=== PATIENT | male | born 1955 | race Caucasian/White ===

== ENCOUNTER → 2022-07-25 | Outpatient (CLI) | payer BC ==
--- NOTE | 2022-07-25 09:49 | US ---
EXAMINATION TYPE: US scrotum with doppler. Grayscale and color Doppler Duplex imaging performed of t nalini scrotum. DATE OF EXAM: 07/25/2022 COMPARISON: NONE CLINICAL HISTORY: N50.89 LT TESTICLE SWELLING. Left testicle swelling. No redness or injury. EXAM MEASUREMENTS: TESTICLES: Right Testicle: 4.7 x 2.8 x 2.6 cm Left Testicle: 4.6 x 3.3 x 1.8 cm EPIDIDYMIS HEAD: Right Epididymis: 0.6 x 0.6 x 0.9 cm Left Epididymis: 1.1 x 1.3 x 1.1 cm Doppler performed to assess for testicular vascularity; good bilateral color flow and waveforms are s een. There is no evidence of testicular torsion. Presence of hydroceles: Small right. Left fluid area seen with moving internal echoes visualized= 7 .3 x 5.9 x 4.8 cm. Presence of varicoceles: no IMPRESSION: 1. Normal large complex hydrocele or fluid collection left side
== END | disposition home or self-care (01) ==
LOC: RADUSWWP 08:48
PROVIDERS: ATTEND Surgery
DX: N43.3 Hydrocele, unspecified (principal); N50.89 Other specified disorders of the male genital organs
CPT/HCPCS: 76870; 93975

== ENCOUNTER → 2022-10-10 | Outpatient (CLI) | payer BC ==
[2022-10-10 17:35] LABS: Basophils # (A) 0.11 X 10*3/uL (0.00-0.10); Basophils % (A) 1.2 %; Eosinophils # (A) 0.14 X 10*3/uL (0.04-0.35); Eosinophils % (A) 1.5 %; HCT 49.1 % (39.6-50.0); HGB 15.9 d/dL (12.0-15.0); Lymphocytes # (A) 2.17 X 10*3/uL (0.90-5.00); Lymphocytes % (A) 22.8 %; MCH 31.5 pg (27.0-32.0); MCHC 32.4 d/dL (32.0-37.0); MCV 97.4 FL (80.0-97.0); Mean Platelet Volume 9.7 FL (9.5-12.2); Monocytes # (A) 1.28 X 10*3/uL (0.20-1.00); Monocytes % (A) 13.5 %; NRBC Per 100 WBC 0 X 10*3/uL (0.00-0.01); Neutrophils # (A) 5.77 X 10*3/uL (1.80-7.70); Neutrophils % (A) 60.7 %; Platelet Count 450 X 10*3/uL (140-440); RBC 5.04 X 10*6/uL (4.40-5.60); RDW 14.6 % (11.5-14.5)
[2022-10-11 18:13] LABS: Blood Urea Nitrogen 20.6 mg/dL (9.0-27.0); Chloride 104 mmol/L (96-109); Glucose 139 mg/dL (70-110); Potassium 5.4 mmol/L (3.5-5.5); Sodium 143 mmol/L (135-145)
== END | disposition home or self-care (01) ==
LOC: LABPAT 10:18
PROVIDERS: ATTEND Urology
DX: Z01.812 Encounter for preprocedural laboratory examination (principal); N43.3 Hydrocele, unspecified
CPT/HCPCS: 36415; 80048; 85025

== ENCOUNTER 2022-10-17 08:10 | Day surgery (SDC) | payer BC, MEDICARE ==
[~2022-10-17 08:10] MED LIST: ACETAMINOPHEN TAB 500 MG TAB PO PRN; DEXAMETHASONE SOD PHOSPHATE 4 MG/ML 1 ML VIAL IV ONE; HEPARIN SODIUM,PORCINE/PF 5,000 UNIT/0.5 ML SYRINGE SQ PRN; HYDROmorphone 0.5 MG/0.5 ML SYRINGE IVP PRN; LACTATED RINGERS 1,000 ML IV SCH; MIDAZOLAM 2 MG/2 ML VIAL IV PRN; ONDANSETRON 4 MG/2 ML VIAL IVP ONE
--- NOTE | 2022-10-17 08:36 | P.GSHP ---
History of Present Illness H&P Date: 10/17/22 Chief Complaint: Right inguinal hernia 67-year-old male here for repair right inguinal hernia and hydrocele on left. Patient has seen urology on a few occasions recently. Has complaints of swelling in the right groin and left testicle. Mild soreness bilaterally. Patient with history of previous abdominal surgeries and adhesions. Prior CAT scan showed bilateral inguinal hernia and umbilical hernia. Past Medical History Past Medical History: GERD/Reflux, Prostate Disorder Additional Past Medical History / Comment(s): lt hydrocel. enlarged prostate, generalized rash flares when pt is hot. seen for it not contagious, diverticulitis History of Any Multi-Drug Resistant Organisms: None Reported Additional Past Surgical History / Comment(s): nasal septal surgery. stretching of esophagus, egd. Additional Past Anesthesia/Blood Transfusion Reaction / Comment(s): woke up during egd. Smoking Status: Never smoker - Past Family History Father Additional Family Medical History / Comment(s): pacemaker. Medications and Allergies Home Medications Medication Instructions Recorded Confirmed Type Finasteride [Proscar] 5 mg PO HS 10/12/22 10/12/22 History Ibuprofen [Advil] 200 mg PO DIRECTED PRN 10/12/22 10/12/22 History Magnesium 250 mg PO DAILY 10/12/22 10/12/22 History Niacin 500 mg PO DAILY 10/12/22 10/12/22 History [place]-3/Dha/Epa/Fish Oil [Fish Oil 1,000 mg PO DAILY 10/12/22 10/12/22 History 1,000 mg Softgel] Omeprazole [PriLOSEC] 20 mg PO AC-BRKFST 10/12/22 10/12/22 History Tamsulosin HCl [Flomax] 0.4 mg PO HS 10/12/22 10/12/22 History Unk Black Elderberry 1 tab PO DAILY 10/12/22 10/12/22 History Unk Garlic 1 tab PO DAILY 10/12/22 10/12/22 History Zinc Gluconate [Zinc] 50 mg PO DAILY 10/12/22 10/12/22 History Allergies Allergy/AdvReac Type Severity Reaction Status Date / Time No Known Allergies Allergy Verified 10/12/22 14:33 Surgical - Exam Physical exam: General: Well-developed, well-nourished HEENT: Normocephalic, sclerae nonicteric Abdomen: Nontender, nondistended, reducible moderate sized right inguinal hernia, left hydrocele Extremities: No edema Neuro: Alert and oriented Assessment and Plan (1) Right inguinal hernia Narrative/Plan: 67-year-old male with symptomatic right inguinal hernia. We'll proceed with open repair right inguinal hernia with mesh. Following that patient will have the left hydrocele operated on by urology. Risks of bleeding, infection, recurrence, bladder and bowel injury, numbness, nerve injury were discussed with the patient. The patient understands and wishes to proceed. Current Visit: Yes Status: Acute Code(s): K40.90 - UNIL INGUINAL HERNIA, W/O OBST OR GANGR, NOT SPCF RECUR SNOMED Code(s): 115355608
--- NOTE | 2022-10-17 10:11 | P.HPIHPCON ---
History of Present Illness H&P Date: 10/17/22 Chief Complaint: left hydrocele This is a 67 yo male with hx of left hydrocele. option of left hydrocelectomy was discussed with him. aware of risk of bleeding, infection, injury to the testicle and recurrence. RIsk of anesthesia was also discussed Consent for Procedure: I have explained the operation/procedure to the patient, including the risks, benefits, side effects, alternative therapies (including not receiving the proposed treatment or service), the likelihood of the patient achieving his/her goals, and potential recuperation problems for the procedure/sedation/analgesia, as well as any blood products, if indicated. I also explained to the patient the risks, benefits and side effects of the alternatives, as well as the risks related to not receiving the proposed procedure, care, treatment, or services. Past Medical History Past Medical History: GERD/Reflux, Prostate Disorder Additional Past Medical History / Comment(s): lt hydrocel. enlarged prostate, generalized rash flares when pt is hot. seen for it not contagious, diverticulitis History of Any Multi-Drug Resistant Organisms: None Reported Additional Past Surgical History / Comment(s): nasal septal surgery. stretching of esophagus, egd. Additional Past Anesthesia/Blood Transfusion Reaction / Comment(s): woke up du ring egd. Smoking Status: Never smoker - Past Family History Father Additional Family Medical History / Comment(s): pacemaker. Medications and Allergies Home Medications Medication Instructions Recorded Confirmed Type Finasteride [Proscar] 5 mg PO HS 10/12/22 10/17/22 History Ibuprofen [Advil] 200 mg PO DIRECTED PRN 10/12/22 10/12/22 History Magnesium 250 mg PO DAILY 10/12/22 10/12/22 History Niacin 500 mg PO DAILY 10/12/22 10/12/22 History [place]-3/Dha/Epa/Fish Oil [Fish Oil 1,000 mg PO DAILY 10/12/22 10/12/22 History 1,000 mg Softgel] Omeprazole [PriLOSEC] 20 mg PO AC-BRKFST 10/12/22 10/17/22 History Tamsulosin HCl [Flomax] 0.4 mg PO HS 10/12/22 10/17/22 History Unk Black Elderberry 1 tab PO DAILY 10/12/22 10/12/22 History Unk Garlic 1 tab PO DAILY 10/12/22 10/12/22 History Zinc Gluconate [Zinc] 50 mg PO DAILY 10/12/22 10/12/22 History Allergies Allergy/AdvReac Type Severity Reaction Status Date / Time No Known Allergies Allergy Verified 10/17/22 08:41 Surgical - Exam Vital Signs Temp Pulse Resp BP Pulse Ox 98.6 F 60 18 149/81 93 L 10/17/22 08:44 10/17/22 08:44 10/17/22 08:44 10/17/22 08:44 10/17/22 08:44 - General no distress, no pain - Respiratory normal expansion, normal respiratory effort Assessment and Plan Assessment: -OR for left hydrocelectomy, this will be a dual case with Dr Carmichael
[2022-10-17] MEDS ORDERED: ROCURONIUM 10 MG/ML (5 ML VIAL) IV ONE (10:15)
[2022-10-17] MEDS ORDERED: LIDOCAINE 2% INJ 20 MG/ML (2 ML VIAL) ONE (10:15)
[2022-10-17] MEDS ORDERED: KETOROLAC 15 MG/ML 1 ML VIAL ONE (10:15)
[2022-10-17] MEDS ORDERED: HYDROmorphone (PF) 1 MG/ML ONE (10:15)
[2022-10-17] MEDS ORDERED: fentaNYL (PF) 50 MCG/ML 2 ML AMP ONE (10:15)
[2022-10-17] MEDS ORDERED: PROPOFOL 10 MG/ML 20 ML VIAL IV ONE (10:15)
[2022-10-17] MEDS ORDERED: GLYCOPYRROLATE 0.2 MG/ML 2 ML VIAL ONE (10:15)
[2022-10-17] MEDS ORDERED: MIDAZOLAM 2 MG/2 ML VIAL ONE (10:15)
[2022-10-17] MEDS ORDERED: NEOSTIGMINE 1 MG/ML 10 ML VIAL ONE (10:15)
[2022-10-17] MEDS ORDERED: SUCCINYLCHOLINE CHLORIDE 200 MG/10 ML VIAL IV ONE (10:15)
[2022-10-17] MEDS ORDERED: BUPIVACAINE (PF) 0.25% 30 ML VIAL SQ ONE ×3 (10:47→11:40)
--- NOTE | 2022-10-17 12:06 | P.OP ---
Date of Procedure: 10/17/22 Procedure(s) Performed: PREOPERATIVE DIAGNOSIS: Right inguinal hernia POSTOPERATIVE DIAGNOSIS: Same PROCEDURE: Open repair right inguinal hernia with mesh, excision cord lipoma SURGEON: Dr. Carmichael ANESTHESIA: General OPERATIVE PROCEDURE DETAILS: Patient was placed in the operating table in the supine position and placed under general anesthesia. An oblique incision was made in the right groin. Dissection down through the subcutaneous tissues took place using electrocautery. The external oblique fascia was incised using a scalpel. This opening was lengthened using the Metzenbaum scissors. The spermatic cord was encircled with a [place] drain. The spermatic cord structures were identified and preserved. Careful dissection revealed an indirect hernia sac. This was fairly large. The sac was opened. No intra- abdominal contents were identified. The patient had 2 lipomas also present one medial and one lateral both were ligated at the internal inguinal ring using 0 silk stick tie sutures. The indirect hernia sac was carefully dissected back to the internal inguinal ring where it was ligated using 2 separate 0 silk stick tie sutures. A 2 inch by four-inch Prolene mesh was cut to fit on the exposed fascia. This was sutured to the pubic tubercle the folding edge of the inguinal ligament and the conjoined tendon using interrupted 0 Vicryl sutures. A slit was created in the mesh and the mesh was wrapped around the spermatic cord and sutured back to itself. The external oblique was then reapproximated using a running 2-0 Vicryl suture. The subcutaneous tissues were reapproximated using a 3-0 Vicryl sutures. The skin was closed using 4-0 Monocryl sutures. Skin glue and sterile dressings were then applied. TYPE OF MESH USED: 2 inch by four-inch flat Prolene mesh LOCATION OF MESH: [place] FIXATION: O Vicryl PREOPERATIVE DISCUSSION ON SMOKING CESSASTION: Yes PREOPERATIVE DISCUSSION ON MORBID OBESITY: Yes PREOPERATIVE DISCUSSION ON APPROPRIATE USE OF NARCOTIC USE: Yes PREOPERATIVE EDUCATION: Multi Modal, Smoking Cessation and Weight Loss with BMI over 35. DISPOSITION: Stable to recovery room
--- NOTE | 2022-10-17 12:13 | P.OP ---
Date of Procedure: 10/17/22 Preoperative Diagnosis: Left hydrocele Postoperative Diagnosis: Same Procedure(s) Performed: Left hydrocelectomy Implants: none Anesthesia: PADMINI Surgeon: Rk Roberts Estimated Blood Loss (ml): 10 Pathology: other (Left hydrocele sac) Condition: stable Disposition: PACU Indications for Procedure: This is a 67-year-old male with history of left-sided hydrocele, he is symptomatically from his hydrocele Option of hydrocelectomy was discussed with her the risk of bleeding, infection, injury to the testicle. Risk of recurrence also discussed. He understood all the risk and agreed to proceed with a left hydrocelectomy, this will be a combined case with a right inguinal hernia repair which will be performed by Dr Carmichael and a left hydrocelectomy Operative Findings: large left hydrocele Description of Procedure: After Dr Carmichael completed his portion. At this time local anesthetic was infiltrated along the left hemiscrotum, next an incision was made along the left scrotum using a scalpel. Dartos fascia wsa incised using cautery. Hydrocele sac was dissected off of. Next a small incision was made in the hydrocele sac and the hydrocele sac was drained. Next the hydrocele sac was excised, the edges of the hydrocele sacs was, cauterized. Of note the hydrocele sac was significantly thickened. Next to prevent recurrence the hydrocele sac was everted backward and both edges were sutured together using 3-0 Vicryl. Next the testicles returned back to the scrotum in normal anatomical lay, hemostasis was achieved, and there was no evidence of bleeding.. Next dartos was was closed using 3-0 Vicryl, skin was closed using 4-0 chromic. Skin glue was applied to the incision. Patient tolerated procedure well taken to recovery in stable condition
[2022-10-17 12:25] VITALS: TEMP 97.6
[2022-10-17] MEDS ORDERED: LACTATED RINGERS 1,000 ML IV ONE (12:43)
[2022-10-17 13:33] VITALS: RESP 16
[2022-10-17 13:58] VITALS: BP 132/78; PULSE 70
== END 2022-10-17 14:31 | disposition home or self-care (01) ==
LOC: OR 08:10
PROVIDERS: ATTEND Surgery
DX: D17.6 Benign lipomatous neoplasm of spermatic cord (principal); K40.90 Unilateral inguinal hernia, without obstruction or gangrene, not specified as recurrent; N43.3 Hydrocele, unspecified; K21.9 Gastro-esophageal reflux disease without esophagitis; Z98.890 Other specified postprocedural states; Z79.899 Other long term (current) drug therapy
CPT/HCPCS: 49505; 55040; C1781; J2250; J0330; J1100; J2710; J0690; J2405; J3010; J1170; J1885; J2704; J1644; J2001; 88304

== ENCOUNTER 2022-10-24 08:00 | Emergency (ER) | payer BC, MEDICARE ==
[2022-10-24 08:16] VITALS: BP 122/86; PULSE 96; RESP 20; TEMP 98.7
--- NOTE | 2022-10-24 09:00 | ED ---
Recheck HPI - General Chief Complaint: Recheck/Abnormal Lab/Rx Stated Complaint: post op comp Time Seen by Provider: 10/24/22 08:32 Source: patient, RN notes reviewed Mode of arrival: ambulatory Limitations: no limitations - History of Present Illness Initial Comments: This is a 67-year-old male who presents to the emergency department for concerns of a postoperative complication. On 10/17, patient had removal of left hydrocele with Dr. Roberts, this was combined with right inguinal hernia repair with Dr. Carmichael. States that he has not had a bowel movement since surgery. He is taking MiraLAX. While he is not having bowel movements, he has not experienced any abdominal pain or nausea. 2 days ago, he started to notice that the incision on the bottom of his scrotum had started to open up. Yesterday and into today they opened up substantially per the family, and he has had ongoing bleeding. This is only painful if he gets up and tries to move around. He changes the pads a couple of times each day, whenever he uses the restroom. States that the scrotal swelling has actually started to improve. He had previously taken Motrin and Tylenol, but thought that he could not take this for more than 5 days, and has thus stopped taking it. However, it was very helpful when he was taking it. Denies any fevers, chills, sore throat, cough, dyspnea, chest pain, palpitations, abdominal pain, nausea, vomiting, diarrhea, back pain, or h eadaches. Complaint: wound re-check - Related Data Home Medications Medication Instructions Recorded Confirmed Finasteride [Proscar] 5 mg PO HS 10/12/22 10/24/22 Ibuprofen [Advil] 200 mg PO DIRECTED PRN 10/12/22 10/24/22 Magnesium 250 mg PO DAILY 10/12/22 10/24/22 Niacin 500 mg PO DAILY 10/12/22 10/24/22 [place]-3/Dha/Epa/Fish Oil [Fish Oil 1,000 mg PO DAILY 10/12/22 10/24/22 1,000 mg Softgel] Omeprazole [PriLOSEC] 20 mg PO AC-BRKFST 10/12/22 10/24/22 Tamsulosin HCl [Flomax] 0.4 mg PO HS 10/12/22 10/24/22 Zinc Gluconate [Zinc] 50 mg PO DAILY 10/12/22 10/24/22 Acetaminophen Tab [Tylenol Tab] 1,000 mg PO Q6H PRN 10/24/22 10/24/22 Black Elderberry(Unknown Dose) 1 tab PO DAILY 10/24/22 10/24/22 Garlic(Unknown Dose) 1 cap PO DAILY 10/24/22 10/24/22 Previous Rx's Medication Instructions Recorded oxyCODONE HCL [OxyIR] 5 mg PO Q6H PRN 3 Days #6 tab 10/17/22 Allergies Allergy/AdvReac Type Severity Reaction Status Date / Time No Known Allergies Allergy Verified 10/24/22 10:16 Review of Systems ROS Statement: Those systems with pertinent positive or pertinent negative responses have been documented in the HPI. ROS Other: All systems not noted in ROS Statement are negative. Past Medical History Past Medical History: GERD/Reflux, Prostate Disorder History of Any Multi-Drug Resistant Organisms: None Reported Past Surgical History: Hernia Repair Additional Past Surgical History / Comment(s): Hydrocele, spleenectomy, bowel adhesions, nose, vastectomy, fundoplication X2 Past Psychological History: No Psychological Hx Reported Smoking Status: Never smoker Past Alcohol Use History: Rare Past Drug Use History: None Reported General Exam Limitations: no limitations General appearance: alert, in no apparent distress Head exam: Present: atraumatic, normocephalic, normal inspection Respiratory exam: Present: normal lung sounds bilaterally. Absent: respiratory distress, wheezes, rales, rhonchi, stridor Cardiovascular Exam: Present: regular rate, normal rhythm, normal heart sounds. Absent: systolic murmur, diastolic murmur, rubs, gallop, clicks GI/Abdominal exam: Present: soft, normal bowel sounds. Absent: distended, tenderness, guarding, rebound, rigid exam: Present: other (Incision on the bottom of the left scrotum. Minor active bleeding. No tenderness) Course Vital Signs 10/24/22 08:07 Temperature 98.7 F Pulse Rate 96 Respiratory 20 Rate Blood Pressure 122/86 O2 Sat by Pulse 97 Oximetry Medical Decision Making - Medical Decision Making This is a 67-year-old male who presents to the emergency department for concerns of postoperative complications. Was pt. sent in by a medical professional or institution? @ -No Did you speak to anyone other than the patient for history? @ -No Did you review nursing and triage notes? @ -Yes, and I agree, it is accurate with regards to the patient's symptoms. Were old charts reviewed? @ -No Differential Diagnosis? @ -Differential Constipation: Bowel obstruction, poor dietary intake, immobility, hypothyroidism, gut motility issues, this is not meant to be an all-inclusive list. EKG interpreted by me (3pts min.)? @ -Not obtained X-rays interpreted by me (1pt min.)? @ -KUB x-ray obtained. My interpretation of the KUB x-ray reveals no free air or dilation of the bowel loops. CT interpreted by me (1pt min.)? @ Computed tomography scan of the abdomen and pelvis obtained. My interpretation identifies no evidence of free air. U/S interpreted by me (1pt. min.)? @ -Not obtained What testing was considered but not performed? (CT, X-rays, U/S, labs)? Why? @ -None What meds were considered but not given? Why? @ -None Did you discuss the management of the patient with other professionals? @ -Yes, Dr. Molina, urology, who advised that the bleeding incision, while it is starting to slightly open, is not of concern and needs no intervention at this time. Did you reconcile home meds? @ -No Was smoking cessation discussed for >3mins.? @ -No Was critical care preformed (if so, how long)? @ -No Were there social determinants of health that impacted care today? How? (Ho melessness, low income, unemployed, alcoholism, drug addiction, transportation, low edu. Level, literacy, decrease access to med. care, [facility], rehab)? @ -No Was there de-escalation of care discussed even if they declined? (Discuss DNR or withdrawal of care, Hospice)? @ -No What co-morbidities impacted this encounter? (DM, HTN, Smoking, COPD, CAD, Cancer, CVA, Hep., AIDS, mental health diagnosis, sleep apnea, morbid obesity)? @ -None Was patient admitted / discharged? @ -Discharged. KUB x-ray obtained revealing no notable amount of constipation. I discussed the issue of the bleeding incision with Dr. Molina. He advised that while this is bothersome, there is no intervention that needs to be done. The patient was greatly concerned about losing too much blood. We subsequently obtained a CBC. This did reveal leukocytosis, however his hemoglobin was stab le. Given the leukocytosis, I advised a scrotal ultrasound. Patient refused and a computed tomography scan of the abdomen and pelvis was obtained instead to evaluate for any signs of infection. This revealed an area in the scrotum with hemorrhagic attenuation, and a scrotal ultrasound was suggested. This was discussed with the patient, who again refused. This finding is most likely related to the surgery. However, patient was advised that an ultrasound would be needed to confirm this. He again refused. Patient instructed to follow up with urology. He was given a bottle of magnesium citrate to go home with, however advised that this will cause diarrhea. Advised he can also continue with the MiraLAX to see if he will produce a bowel movement before trying the mag citrate. He is also advised that he can continue alternating with ibuprofen and Tylenol as needed for pain control. Also advised elevating the scrotum and continuing with ice. Undiagnosed new problem with uncertain prognosis? @ -None Drug Therapy requiring intensive monitoring for toxicity (Heparin, Nitro, Insulin, Cardizem)? @ -None Were any procedures done? @ -None Diagnosis/symptom? @ -Postop bleeding, constipation Acute, or Chronic, or Acute on Chronic? @ -Acute Uncomplicated (without systemic symptoms) or Complicated (systemic symptoms)? @ -Uncomplicated Side effects of treatment? @ -None Exacerbation, Progression, or Severe Exacerbation] @ -Not applicable Poses a threat to life or bodily function? @ -No Return precautions reviewed in depth, the patient is instructed to return to the emergency department with any new, worsening, or concerning symptoms. Patient verbalized understanding. This case was discussed in detail with the attending ED physician, Dr. Kaba. Presentation, findings, and treatment plan discussed in detail as well. - Lab Data Result diagrams: 10/24/22 10:41 Lab Results 10/24/22 Range/Units 10:41 WBC 19.2 H (3.8-10.6) k/uL RBC 4.47 (4.30-5.90) m/uL Hgb 14.2 (13.0-17.5) gm/dL Hct 43.7 (39.0-53.0) % MCV 97.7 (80.0-100.0) fL MCH 31.8 (25.0-35.0) pg MCHC 32.5 (31.0-37.0) g/dL RDW 13.1 (11.5-15.5) % Plt Count 480 H (150-450) k/uL MPV 7.6 Neutrophils % 78 % Lymphocytes % 9 % Monocytes % 9 % Eosinophils % 2 % Basophils % 0 % Neutrophils # 15.0 H (1.3-7.7) k/uL Lymphocytes # 1.7 (1.0-4.8) k/uL Monocytes # 1.8 H (0-1.0) k/uL Eosinophils # 0.3 (0-0.7) k/uL Basophils # 0.0 (0-0.2) k/uL - Radiology Data Radiology results: report reviewed, image reviewed Disposition Clinical Impression: Constipation, S/P urological surgery, Postoperative bleeding from incision Disposition: HOME SELF-CARE Instructions (If sedation given, give patient instructions): Constipation (ED) Additional Instructions: Return to the emergency department with any new, worsening, or concerning symptoms. Alternate with ibuprofen and Tylenol as needed for pain relief. Try to take it easy and avoid any excess movements, as this may further exacerbate the problem. You can try to roll a small towel to elevate the scrotum and continue icing the region. You can also continue taking the MiraLAX to see if that helps you produce a bowel movement. If needed you can drink the magnesium citrate provided, however this will likely cause diarrhea. Contact the urology office for a follow up appointment. Is patient prescribed a controlled substance at d/c from ED?: No Referrals: None,Stated [Primary Care Provider] - 1-2 days Rk Roberts MD [STAFF PHYSICIAN] - 1-2 days
--- NOTE | 2022-10-24 09:23 | XR ---
EXAMINATION TYPE: XR KUB DATE OF EXAM: 10/24/2022 COMPARISON: None INDICATION: Constipation TECHNIQUE: Single view abdomen upright view FINDINGS: No free air is evident. Normal colonic bowel gas present. Scalp fecal debris is within the colon. Artem e nonspecific small bowel loops contain air. No suspicious differential air-fluid levels are present. No mass effect is evident. Psoas margins are normal. No organomegaly is present. IMPRESSION: 1. Nonspecific abdomen
[2022-10-24] MEDS ORDERED: MAGNESIUM CITRATE 296 ML BOTTLE PO ONE (10:01)
[2022-10-24 10:52] LABS: Basophils % (A) 0 %; Eosinophils # (A) 0.3 k/uL (0-0.7); Eosinophils % (A) 2 %; HCT 43.7 % (39.0-53.0); HGB 14.2 gm/dL (13.0-17.5); Lymphocytes # (A) 1.7 k/uL (1.0-4.8); Lymphocytes % (A) 9 %; MCH 31.8 pg (25.0-35.0); MCHC 32.5 g/dL (31.0-37.0); MCV 97.7 fL (80.0-100.0); Mean Platelet Volume 7.6; Monocytes # (A) 1.8 k/uL (0-1.0); Monocytes % (A) 9 %; Neutrophils % (A) 78 %; Platelet Count 480 k/uL (150-450); RBC 4.47 m/uL (4.30-5.90); RDW 13.1 % (11.5-15.5); WBC 19.2 k/uL (3.8-10.6)
--- NOTE | 2022-10-24 12:02 | CT ---
EXAMINATION TYPE: CT abdomen pelvis wo con DATE OF EXAM: 10/24/2022 COMPARISON: None HISTORY: Post op abdominal and pelvic pain and scrotal bleeding. History of hernia surgery and hydroc wale surgery. CT DLP: 1077.4 mGycm Examination of the solid and hollow viscera is limited given the lack of contrast. FINDINGS: LUNG BASES: No evidence for nodule. No evidence for infiltrate. Basilar linear atelectasis noted. LIVER/GB: The gallbladder is unremarkable. No space-occupying hepatic lesion. PANCREAS: No pancreatic mass identified. No inflammatory process seen. SPLEEN: No evidence for splenomegaly. No intrasplenic lesions seen. ADRENALS: No adrenal nodules identified. No evidence for thickening. KIDNEYS: No evidence for renal mass. No nephrolithiasis. No hydronephrosis. BOWEL: Appendix has a normal appearance. No evidence of bowel obstruction. No inflammatory process. Lymph nodes: No evidence for adenopathy greater than 1 cm. Abdominal aorta: Atheromatous changes seen. No evidence for aneurysm. Genital organs: No significant abnormality. Other: Postsurgical changes right inguinal region with hematoma noted measuring approximately 3.7 x 2 .8 cm. Postsurgical air is noted within the subcutaneous tissues. Masslike area within the left scrot um with hemorrhagic attenuation. Scrotal ultrasound is recommended. Vasectomy changes noted. IMPRESSION: 1.Postsurgical changes right inguinal region with hematoma noted measuring approximately 3.7 x 2.8 cm . Postsurgical air is noted within the subcutaneous tissues. 2.Masslike area within the left scrotum with hemorrhagic attenuation. Scrotal ultrasound is recommend ed.
== END 2022-10-24 13:44 | disposition home or self-care (01) ==
LOC: EC 08:00
DX: T81.9XXA Unspecified complication of procedure, initial encounter (principal); K59.00 Constipation, unspecified; K21.9 Gastro-esophageal reflux disease without esophagitis; Z79.899 Other long term (current) drug therapy
CPT/HCPCS: 36415; 74018; 74176; 85025; 99284